=== PATIENT | male | born 1980 | race Caucasian/White ===

== ENCOUNTER 2018-07-18 07:34 | Outpatient (CLI) | payer BC ==
--- NOTE | 2018-07-18 10:06 | ULT ---
ABDOMINAL ULTRASOUND: HISTORY: Abdominal pain. FINDINGS: Real-time imaging of the upper abdomen demonstrates a normal-appearing gallbladder. The common duct is 5 mm. The technologist reports a negative ultrasound Dixon's sign. The liver shows no focal abn ormalities. Th spleen is 13 cm in length. It has a somewhat thin elongated-appearing spleen. Pancr eas is obscured. Abdominal aorta and IVC regions are unremarkable. Right and left kidneys are within normal limits of size and not obstructed. IMPRESSION: Unremarkable abdomen ultrasound. POS: [facility]
== END 2018-07-18 07:35 | disposition home or self-care (01) ==
LOC: BICULT 07:34
PROVIDERS: ATTEND Internal Medicine
DX: R10.11 Right upper quadrant pain (principal); R43.9 Unspecified disturbances of smell and taste
CPT/HCPCS: 76700

== ENCOUNTER 2018-09-29 07:38 | Outpatient (CLI) | payer BC ==
--- NOTE | 2018-09-29 10:18 | MRI ---
MRI BRAIN WITH AND WITHOUT CONTRAST: HISTORY: Binocular movement disorder. Blurred vision. Sensitivity to light. Headache. COMPARISON: 11/23/2016. TECHNIQUE: Brain and orbit MRI performed with and without intravenous Gadolinium administration. Multisequentia l, multiplanar imaging is performed. FINDINGS: BRAIN MRI: Calvarium has a normal marrow signal intensity. Midline brain parenchymal structures are unremarkabl e. Central arterial flow voids are maintained. Absent restricted diffusion. No significant T2 or FLAIR white matter hyperintensities. Minimal mucosal disease of the sinuses. Adequate mastoid air cell aeration. No pathologic enhancement of the brain parenchyma. ORBIT MRI: Symmetric signal intensity of the ocular rectus muscles. Appropriate positioning of both ocular lens es. Both globes are intact. No abnormal signal intensity in the retrobulbar fat. The optic chiasm, prechiasmatic optic nerve, intracranial, and intraorbital optic nerves have symmetr ic signal intensity. No evidence of edema or enhancement in the optic nerves. IMPRESSION: 1. Unremarkable pre- and postcontrast brain MRI. 2. Unremarkable orbit MRI. POS: [facility]
[2018-09-29] MEDS ORDERED: Gadobenate Dimeglumine 529 MG/1 ML (20ML VIAL) ONE (10:33)
== END 2018-09-29 07:39 | disposition home or self-care (01) ==
LOC: BICMRI 07:38
PROVIDERS: ATTEND Internal Medicine Infectious Disease
DX: H51.8 Other specified disorders of binocular movement (principal)
CPT/HCPCS: 70553; A9577

== ENCOUNTER 2019-11-10 07:33 | Outpatient (CLI) | payer BC ==
[2019-11-10] MEDS ORDERED: Iopamidol-370 76% 500 ML 1 ML ONE (09:39)
--- NOTE | 2019-11-10 09:53 | CT ---
CT ABDOMEN AND PELVIS WITH ORAL AND IV CONTRAST: HISTORY: Diverticulitis of sigmoid colon. COMPARISON: 01/24/2016. FINDINGS: The lung bases are clear. The liver, spleen, pancreas, adrenal glands, and kidneys are normal. No c alcified gallstones are seen. No free air, free fluid, or lymphadenopathy is seen in the abdomen or pelvis. The small bowel loops are not abnormally dilated. A normal-appearing appendix is present. No significant colonic diverticulosis or pericolonic inflammatory changes are seen. No abnormally lo culated fluid collections are noted to suggest abscess formation. IMPRESSION: No acute process. POS: [facility]
== END 2019-11-10 07:34 | disposition home or self-care (01) ==
LOC: BICCT 07:33
PROVIDERS: ATTEND Internal Medicine
DX: K57.32 Diverticulitis of large intestine without perforation or abscess without bleeding (principal); K76.9 Liver disease, unspecified
CPT/HCPCS: 74177; Q9967